=== PATIENT | male | born 1945 | race Caucasian/White ===

== ENCOUNTER → 2017-01-10 | Outpatient (CLI) | payer MEDICARE, OTHER ==
[2016-12-28 11:58] VITALS: BP 158/68
[~2017-01-10] MED LIST: BUPR300T3 PO; CALC600T4 PO; IOHEXOL 180 MG/ML 10 ML VIAL. ONE; LORA10TA3 PO; MELO-156 PO; MULT-245 PO; OMEP40CA5 PO; PRAV10TA2 PO; TADA5TAB PO; [UNRECOGNIZED DRUG - OTHER]; methylPREDNISolone ACETATE 40 MG/ML VIAL. ONE; methylPREDNISolone ACETATE 80 MG/ML VIAL. ONE
--- NOTE | 2017-01-11 00:16 | PAIN ---
DATE OF SERVICE: 01/10/2017 INITIAL CONSULTATION FOR PAIN CLINIC CHIEF COMPLAINT: Low back pain. HISTORY OF PRESENT ILLNESS: This is a 71-year-old male who presents with history of pain since about 1990 many years. He had a fall in the past about 30 years ago and had some significant pain at that time and has always had some low back pain smoldering along day-to-day without any specific other injuries or accidents, but very painful. The patient reports that it was just "time to do something about it." The patient reports as a constant aching pain across the low back, right essentially equal to left, occasionally shooting into the posterior gluteus and thighs, but mostly just staying in the back. The patient reports no weakness in the legs. He has had physical therapy as recently as 2014 as well as exercise, which he is currently doing on his own, generally daily, but not every day. The patient reports this does not awaken him from sleep at night. He feels better with lying down or sitting, but worse with standing and walking. If he goes to the store and walks more than 15-20 minutes, he has to stop and rest because the pain is becoming worse with some radiation into the hips and legs. The patient reports no complete loss of function, but significant fatigability, mainly in the hips and back when he is ambulating. The patient did have an MRI scan of the lumbar spine, which is dated 12/15/2016 showing multilevel degenerative disk disease, congenitally short pedicles from L2-L3, moderate disk bulge and endplate spurring, some mild central canal narrowing. L3-L4 shows desiccation of disk material with minimal disk bulge, L4-L5 shows short pedicles, marked facet and ligamentous hypertrophy, marked right and moderate left neural foraminal stenosis. L5-S1 shows moderate to marked neural foraminal stenosis bilaterally with facet joint hypertrophy and ligamentous hypertrophy as well. PAST MEDICAL HISTORY: Significant for hearing loss, sleep apnea, quit cigarette smoking 25 years ago, gastroesophageal reflux, depression, arthritis, restless leg syndrome. PREVIOUS SURGERY: Includes a left inguinal hernia repair. CURRENT MEDICATIONS: Include meloxicam, Wellbutrin, pravastatin, multivitamin, omeprazole, Cialis, loratadine, vitamin C and calcium. ALLERGIES: No known drug allergies. FAMILY HISTORY: Significant for no major medical problems or conditions that he is aware of. SOCIAL HISTORY: The patient drinks socially only very infrequently, does not smoke. He is , lives with his spouse. No children living at home, lives in [place], [place]. REVIEW OF SYSTEMS: The patient's review of systems is positive for those items mentioned in history of present illness. All systems reviewed. It is complete, full and well documented on the patient's chart. PHYSICAL EXAMINATION: VITAL SIGNS: Today, blood pressure 151/97, pulse 68, respirations 20, temperature 98.0 degrees Fahrenheit, height 6 feet, weight is 264 pounds. GENERAL: The patient is awake, alert, oriented, appropriate, very pleasant demeanor. HEENT: Head shows normocephalic, atraumatic. Extraocular movements are intact, symmetrical. Oral cavity: Mucous membranes moist and pink. Dentition is intact. NECK: Shows anterior throat supple without palpable lymphadenopathy noted. Swallow reflex is symmetrical. CHEST: Shows normal on inspection. Breath sounds are clear to auscultation bilaterally. HEART: Shows S1 and S2 clear. No murmurs auscultated. ABDOMEN: Obese, soft, nontender, nondistended. No palpable organomegaly, no rebound or guarding demonstrated. BACK: The patient's back shows spine grossly in the midline. Slight exaggeration of thoracic kyphosis, some minor flattening of lumbar lordotic curvature. No previous bruises, lesions, rashes or scars are noted. Lumbar paraspinous musculature shows symmetrical on inspection. With palpation shows normal muscle girth, is firm with only very mild tenderness in the lower lumbar distribution bilaterally, but only diffusely and only minimally. No radiation of pain. No tenderness over the sacrum or sacroiliac regions or the posterior superior iliac spine. The patient shows good rotational motion both laterally greater than 10 degrees right and left, as well as extension greater than 10 degrees, forward flexion 45 degrees without significant pain reported. Straight leg raise noted to be negative bilaterally. EXTREMITIES: Lower extremities show deep tendon reflexes at 2+ in the patellar, 1+ tendo calcaneus tendons. Motor exam is strong with 5/5 dorsiflexion, extension, quadriceps and hamstring flexion and symmetrical. Peripheral pulses are 1+ posterior tibial and dorsalis pedis pulses. No peripheral edema is noted. No clubbing, no cyanosis. Lower extremities are warm and dry to touch, equal in color and appearance. Gaenslen's and Redd's maneuvers are also negative for reproduction of pain bilaterally. The patient is able to stand, stand on his toes without significant difficulty or loss of balance, walks with a normal appearing gait for short distance in the office today without assistive devices. IMPRESSION: 1. This is a 71-year-old male with history of many years of low back pain. 2. MRI scan of lumbar spine as noted. 3. Arthritis. 4. Sleep apnea. 5. Hearing loss. PLAN: Options were discussed with the patient including conservative medical management, physical therapy, interventional techniques and would like to pursue interventional techniques. We discussed a lumbar epidural steroid injection using description as well as anatomical models to describe the procedure. Risks were then discussed including, but not limited to bleeding, infection, possibility of epidural hematoma and subsequent neurologic compromise, dural puncture, headaches, spinal cord and/or nerve damage, side effects of steroid medication and poor results regarding pain control. The patient understands and wishes to proceed. The patient will return to clinic in approximately 2 weeks for followup, was counseled on return appointment, activity level and side effects to be aware of. DIAGNOSES: Lumbar radiculopathy with lumbar degenerative disk disease. PROCEDURE: Lumbar epidural steroid injection in translaminar approach at the L4-L5 level using C-arm fluoroscopic guidance with local anesthetic under sterile prep and drape. MEDICATIONS INJECTED: 120 mg Depo-Medrol plus 10 mL of preservative-free normal saline and 2 mL of Isovue for contrast. CONDITION AT DISCHARGE: Stable. The patient tolerated procedure well, had no complications. YUMI EGAN MD DR: RACHEL/ammy JOB#: [id number] / [id number]
== END | disposition home or self-care (01) ==
LOC: PNCL 08:12
PROVIDERS: ATTEND Anesthesiology
DX: M51.16 Intervertebral disc disorders with radiculopathy, lumbar region (principal); M19.90 Unspecified osteoarthritis, unspecified site; H91.90 Unspecified hearing loss, unspecified ear; K21.9 Gastro-esophageal reflux disease without esophagitis; F32.9 Major depressive disorder, single episode, unspecified; Z72.89 Other problems related to lifestyle
CPT/HCPCS: 62323; J1030; J1040

== ENCOUNTER → 2017-01-25 | Outpatient (CLI) | payer MEDICARE, OTHER ==
[2016-12-28 11:58] VITALS: BP 158/68
--- NOTE | 2017-01-25 12:07 | PAIN ---
DATE OF SERVICE: 01/25/2017 PROGRESS NOTE FOR PAIN CLINIC DIAGNOSES: Lumbar radiculopathy with lumbar degenerative disk disease and low back pain. HISTORY OF PRESENT ILLNESS: The patient is a 71-year-old male, who returns for followup status post lumbar epidural steroid injection x 1. The patient reports about 75% improvement in the low back pain, which was doing much better for the first 2 weeks or so, then returning now over the past few days in the low back with activity. He has been sleeping better at night and has been increasing his daily activities with greater ease and comfort is quite pleased with his progress. The patient reports no new motor or sensory deficits, no new bowel or bladder incontinence or other complaints. He reports the pain is constant and dull with some cramping as well, but rates it 2 on a scale of 10 at its worst. The patient reports no new motor or sensory deficits, no new concerns. PHYSICAL EXAMINATION: VITAL SIGNS: The patient's blood pressure is 146/91, pulse 70, respirations 18, temperature 97.4 degrees Fahrenheit, height is 6 feet, weight is 256 pounds. GENERAL: The patient is awake, alert, oriented, appropriate, very pleasant demeanor. HEENT: Head shows normocephalic and atraumatic. NECK: Shows anterior throat supple without palpable lymphadenopathy noted. Swallow reflex is symmetrical. CHEST: Shows normal on inspection. Breath sounds clear to auscultation bilaterally. HEART: Shows S1 and S2 clear. No murmurs auscultated. ABDOMEN: Soft, nontender, nondistended. No palpable organomegaly is noted. No rebound or guarding demonstrated. BACK: Shows spine grossly midline. Lumbar paraspinous muscle shows some mild tenderness with palpation, but only diffusely in the lower lumbar distribution without radiation. EXTREMITIES: Lower extremities show deep tendon reflexes 2+ in the patellar and tendo calcaneus tendons. Motor exam is strong with 5/5 dorsiflexion, extension, quadriceps and hamstring flexion and symmetrical. Options were discussed with the patient. We will proceed with a second lumbar epidural steroid injection today with fluoroscopic guidance. Risks were again discussed including but not limited to bleeding, infection, possibility of intravascular injection sequelae, spread of local anesthetic and numbness, absorption of local anesthetic, pneumothorax as well as C-arm exposure and poor results regarding pain control. The patient understands and wishes to proceed. The patient will return to the clinic in approximately 2 weeks for followup. He was counseled on his return appointment, activity level and side effects to be aware of. DIAGNOSIS: Lumbar radiculopathy with lumbar degenerative disk disease and low back pain. PROCEDURE: Lumbar epidural steroid injection in translaminar approach at the L4-L5 level using C-arm fluoroscopic guidance under sterile prep and drape using local anesthetic. MEDICATION INJECTED: Depo-Medrol 120 mg plus 10 mL of preservative-free normal saline and 2 mL of Isovue for contrast. CONDITION AT DISCHARGE: Stable. The patient tolerated procedure well, had no complications. YUMI EGAN MD DR: RACHEL/ammy JOB#: [id number] / [id number]
== END | disposition home or self-care (01) ==
LOC: PNCL 07:24
PROVIDERS: ATTEND Anesthesiology
DX: M51.16 Intervertebral disc disorders with radiculopathy, lumbar region (principal); E78.00 Pure hypercholesterolemia, unspecified; J45.909 Unspecified asthma, uncomplicated; Z87.39 Personal history of other diseases of the musculoskeletal system and connective tissue
CPT/HCPCS: 62323; J1030; J1040

== ENCOUNTER → 2017-02-19 | Outpatient (CLI) | payer MEDICARE, OTHER ==
[2016-12-28 11:58] VITALS: BP 158/68
[~2017-02-19] MED LIST changes: -MELO-156 PO; +MELO7.5T29 PO
--- NOTE | 2017-02-19 09:27 | PAIN ---
DATE OF SERVICE: 02/19/2017 DIAGNOSES: Lumbar radiculopathy with lumbar degenerative disk disease and low back pain. HISTORY OF PRESENT ILLNESS: The patient is a 71-year-old male who returns for followup status post lumbar epidural steroid injection x 2. The patient reports the first injection gave significant improvement about 75%. With second one, there was not much improvement at all. The patient reports the pain is basically back to baseline in his low back and bilateral posterior gluteus, posterior thighs, also some pain radiating up into the right mid back, which is better with heat and stretching. The patient reports still the pain is about a 6 on a scale of 10. It is worse with 3 on a scale of 10 currently, reports no new motor or sensory deficits, no new bowel or bladder incontinence, but still significant pain described as constant and dull in the low back itself, this is worse with ____ in a car or standing and walking. The patient reports that heat decreases the pain significantly, has been using heating pads as well as a TENS unit at home, which does decrease the pain as well. The patient reports no new motor or sensory deficits, no new bowel or bladder incontinence or other complaints. PHYSICAL EXAMINATION: VITAL SIGNS: Today, the patient's blood pressure is 146/93, pulse ____, respirations 20, temperature 97.8 degrees Fahrenheit, weight is 250 pounds. GENERAL: The patient is awake, alert, oriented, appropriate, very pleasant demeanor. HEENT: Head shows normocephalic, atraumatic. Extraocular movements are intact and symmetrical. Oral cavity, mucous membranes are moist and pink. Dentition is intact. NECK: Shows anterior throat supple without palpable lymphadenopathy noted. Swallow reflex is symmetrical. CHEST: Shows normal on inspection. Breath sounds clear to auscultation bilaterally. HEART: Shows S1 and S2 clear. ABDOMEN: Soft, obese, nontender, nondistended. No palpable organomegaly is noted. No rebound or guarding demonstrated. BACK: Shows spine grossly in the midline. Lumbar paraspinous musculature shows symmetrical on inspection with palpation shows moderate tenderness bilaterally, but only diffusely throughout the middle and lower distribution of paraspinous muscles. The patient shows good rotation of motion; however, both laterally greater than 10 degrees right and left as well as extension greater than 10 degrees, forward flexion 45 degrees with no pain reported with any of these maneuvers. EXTREMITIES: The patient's lower extremities show deep tendon reflexes 2+ in the patellar, 1+ tendo-calcaneus tendons are equal and symmetrical. Motor exam is strong with 5/5 dorsiflexion, extension, quadriceps and hamstring flexion and symmetrical as well. Options were discussed with the patient and the patient's old chart was reviewed as his current medication regimen updated. Current review of systems updated today as well. We will proceed with a third in a series of lumbar epidural steroid injection using a C-arm fluoroscopic guidance. Risks were again discussed including, but not limited to bleeding, infection, possibility of epidural hematoma, subsequent neurologic compromise, dural puncture, headaches, spinal cord and/or nerve damage, side effects of steroid medication and poor results regarding pain control. The patient understands and wishes to proceed. The patient will return to clinic in approximately 2 weeks for followup. He was counseled on his return appointment, activity level and side effects to be aware of. DIAGNOSES: Lumbar radiculopathy with lumbar degenerative disk disease and low back pain. PROCEDURE: Lumbar epidural steroid injection in translaminar approach at the L4-L5 level using C-arm fluoroscopic guidance under sterile prep and drape using local anesthetic. MEDICATIONS INJECTED: 120 mg Depo-Medrol plus 10 mL preservative-free normal saline and 2 mL Isovue for contrast. CONDITION AT DISCHARGE: Stable. The patient tolerated procedure well, had no complications. YUMI EGAN MD DR: RACHEL/ammy JOB#: [id number] / [id number]
== END | disposition home or self-care (01) ==
LOC: PNCL 07:25
PROVIDERS: ATTEND Anesthesiology
DX: M51.16 Intervertebral disc disorders with radiculopathy, lumbar region (principal); E78.00 Pure hypercholesterolemia, unspecified; J45.909 Unspecified asthma, uncomplicated; K21.9 Gastro-esophageal reflux disease without esophagitis; Z87.39 Personal history of other diseases of the musculoskeletal system and connective tissue
CPT/HCPCS: 62323; J1030; J1040

== ENCOUNTER → 2017-03-22 | Outpatient (CLI) | payer MEDICARE, OTHER ==
[2016-12-28 11:58] VITALS: BP 158/68
[~2017-03-22] MED LIST changes: +BUPIVACAINE MPF 0.25% 10 ML VIAL. ONE; +GABA-585 PO; -methylPREDNISolone ACETATE 40 MG/ML VIAL. ONE
== END | disposition home or self-care (01) ==
LOC: PNCL 07:38
PROVIDERS: ATTEND Anesthesiology
DX: M51.16 Intervertebral disc disorders with radiculopathy, lumbar region (principal); M47.26 Other spondylosis with radiculopathy, lumbar region; J45.909 Unspecified asthma, uncomplicated; E78.00 Pure hypercholesterolemia, unspecified; Z87.39 Personal history of other diseases of the musculoskeletal system and connective tissue
CPT/HCPCS: 64493; 64494; J1040; J3490